=== PATIENT | male | born 1965 | race Caucasian/White ===

== ENCOUNTER 2019-04-07 12:54 | Outpatient (CLI) | payer OTHER, SELFPAY ==
--- NOTE | 2019-04-07 13:08 | MR_ITS ---
WS: [id number] MRI RIGHT SHOULDER NONCONTRAST TECHNIQUE: Sagittal T2, coronal T1, T2 and proton density imaging. Axial gradient PDE imaging. CLINICAL INFORMATION: RIGHT SHOULDER PAIN COMPARISON: None. FINDINGS: Moderate degenerative arthritis AC joint with edema. Mild downsloping of the acromion. Subacromial sp urring. Tendinopathy in the supraspinatus. Tiny insertional tear at the supraspinatus distally. Suni l infraspinatus. Normal teres minor. Subscapularis appears normal. No full-thickness rotator cuff tea rs. Normal biceps tendon in the bicipital groove. Degenerative fraying of the glenoid labrum. Biceps labr al anchor appears normal. Chronic thinning of the intra-articular portion of the biceps tendon. MR/MR shoulder RT wo con* [id number] IMPRESSION: 1. Moderate degenerative arthritis AC joint with edema and mild downsloping of the acromion. 2. Tendinopathy in the supraspinatus with a tiny insertional tear distally. 3. Rotator cuff is otherwise intact 4. Normal biceps tendon in the bicipital groove. 5. Chronic thinning and atrophy involving the intra-articular portion of the b iceps tendon. 6. Degenerative fraying of the glenoid labrum.
== END 2019-04-07 12:55 | disposition home or self-care (01) ==
LOC: RADSHAW 12:59
PROVIDERS: Visit Provider Family Medicine
DX: M19.011 Primary osteoarthritis, right shoulder (principal); M25.511 Pain in right shoulder
CPT/HCPCS: 73221

== ENCOUNTER 2020-12-07 14:16 | Outpatient (CLI) | payer OTHER, SELFPAY ==
--- NOTE | 2020-12-07 14:29 | MR_ITS ---
WS: [id number] MRI CERVICAL SPINE NONCONTRAST TECHNIQUE: Sagittal T1, T2 and STIR imaging. Axial T2, gradient, and fiesta imaging. CLINICAL INFORMATION: CERVICAL RADICULOPATHY COMPARISON: None. FINDINGS: Straightening of the normal cervical lordosis. Mild spondylitic changes. Mild disc bulging worse at C 3-4, C5-C6, and C6-C7 with endplate degenerative changes. Small shallow protrusions in the upper thor acic spine T2-3 and T3-4. Cord signal is normal. C2-C3: Mild osteophytic ridging. Mild left and no significant right foraminal narrowing. Spinal canal is patent. Mild facet arthropathy. Small right facet effusion with periarticular edema and facet art hropathy. C3-C4: Mild disc osteophyte complex with endplate ridging. Mild central canal stenosis. Moderate left and mild right bony foraminal narrowing. Mild facet arthropathy. C4-C5: Mild disc osteophyte complex with endplate ridging. Moderate left and mild right bony foramina l narrowing. Mild facet arthropathy. Mild central canal stenosis. C5-C6: Mild disc osteophyte complex with endplate degenerative changes. Moderate bilateral bony chey inal narrowing. Mild central canal stenosis. Mild facet arthropathy. Left pericentral disc osteophyte protrusion slightly contacts the left ventral cervical cord. C6-C7: Disc osteophyte complex with small lobulated shallow central protrusion. Mild central canal st enosis. Mild left greater than right bony foraminal narrowing. Mild facet arthropathy. C7-T1: Mild left and no significant right foraminal narrowing. Spinal canal is patent Visualized brain stem structures: Normal. Prevertebral soft tissues: Normal. MR/MR lumbar spine wo con* [id number] IMPRESSION: 1. Straightening of the normal cervical lordosis. 2. Mild central canal stenosis C3-4, C5-6, and C6-7. Small shallow disc osteop hyte complexes at C5-C6 and C6-C7 with slight contact of the cervical cord. 3. Moderate bony foraminal narrowing worse at left C3-4, left C4-5, and bilate ral C5-6, 4. Edema within the right articulating C2-3 facets with a small effusion. Delicia articular edema. Findings compatible with degenerative or inflammatory synoviti s.
== END 2020-12-07 14:17 | disposition home or self-care (01) ==
PROVIDERS: Visit Provider Family Medicine
DX: M54.12 Radiculopathy, cervical region (principal); M48.02 Spinal stenosis, cervical region; M25.78 Osteophyte, vertebrae
CPT/HCPCS: 72148

== ENCOUNTER → 2021-03-02 10:27 | Outpatient (BNVA) | payer OTHER, SELFPAY | PROVIDERS: PCP Family Medicine; Referring Provider Family Medicine; Visit Provider Anesthesiology Pain Medicine | DX: G89.29 Other chronic pain (principal); M54.12 Radiculopathy, cervical region; M47.812 Spondylosis without myelopathy or radiculopathy, cervical region; M48.02 Spinal stenosis, cervical region; M79.601 Pain in right arm; M79.602 Pain in left arm | CPT/HCPCS: 99205 ==

== ENCOUNTER 2023-07-29 20:00 | Outpatient (CLI) | payer OTHER, SELFPAY | END 2023-07-29 20:01 | disposition home or self-care (01) | LOC: SLEEP 07-30 06:16 | PROVIDERS: PCP Family Medicine; Visit Provider Family Medicine | DX: G47.33 Obstructive sleep apnea (adult) (pediatric) (principal) | CPT/HCPCS: 95811 ==

== ENCOUNTER 2024-03-01 10:49 | Observation (INO) | payer OTHER, SELFPAY ==
[2024-03-01] VITALS (8 sets, daily range): BP systolic 111–163; BP diastolic 74–99; PULSE 70–86; RESP 17–19; TEMP 36.4–37; O2SAT 94–99; BMI 25.7; BMI 26.0
--- NOTE | 2024-03-01 10:50 | XRR_ITS ---
PROCEDURE INFORMATION: Exam: XR Chest Exam date and time: 03/01/2024 11:02 AM Age: 58 years old Clinical indication: Pain; Patient HX: PT complains of chest pressure that started around midnight 2 nights ago. PT states he thought it was acid reflux and tried tums with no relief. PT states yesterday he started to become dizzy and had some shortness of breath. PT states his chest feels tight and goes down his left arm. ; Additional info: Cp TECHNIQUE: Imaging protocol: Radiologic exam of the chest. Views: 1 view. COMPARISON: MR shoulder RT wo con* [id number] 04/07/2019 1:49 PM FINDINGS: Lungs: Unremarkable. No consolidation. Pleural spaces: Unremarkable. No pleural effusion. No pneumothorax. Heart/Mediastinum: Unremarkable. No cardiomegaly. Bones/joints: Unremarkable. XR/XR chest 1V portable [id number] IMPRESSION: No acute findings.
--- NOTE | 2024-03-01 11:02 | ED_ITS ---
HPI - Chest Pain 2 General: Chief Complaint: Chest Pain Stated Complaint: Chest Pressure, night sweats, lightheaded, SOB Time Seen by Provider: 03/01/24 10:58 Source: patient Mode of arrival: ambulatory Limitations: no limitations History of Present Illness: 58-year-old male states that he has been having chest pains over the last 2 days states been intermittent pressure type pain in his chest states pain is currently 2 out of 10 said he had some night sweats and the pains radiate to his left shoulder. No history of coronary artery disease does have a history of hypertension diabetes. Associated symptoms: Deny abdominal pain, dyspnea, fever(s), nausea or vomiting Related Data Home Medications Medication Instructions Recorded Confirmed lisinopril 40 mg tablet 40 mg PO DAILY 04/27/19 03/01/24 metformin 1,000 mg tablet 1,000 mg PO BID 03/02/21 03/01/24 atorvastatin 40 mg tablet 40 mg PO QPM 03/01/24 03/01/24 empagliflozin 25 mg tablet 25 mg PO DAILY 03/01/24 03/01/24 (Jardiance) hydrochlorothiazide 25 mg tablet 25 mg PO DAILY blood pressure 03/01/24 03/01/24 Allergies Allergy/AdvReac Type Severity Reaction Status Date / Time No Known Allergies Allergy Verified 03/02/21 11:02 Review of Systems 2 Const: Denies: fever(s), chills, body aches or change in appetite ENMT: Denies: throat pain or dental pain Card: Reports: chest pain Resp: Denies: dyspnea GI: Denies: abdominal pain, nausea, vomiting or diarrhea Musc: Denies: neck pain or back pain Skin/Breast: Denies: rash Neuro: Denies: headache(s) PFSH ED 2 PFSH: Family History (Updated 03/02/21 @ 11:01 by Nikki Stoddard RN) Father Heart disease Social History Smoking and tobacco/nicotine status: former use of tobacco/nicotine Alcohol intake: never Substance/Drug Use: never Caregiver/support person: Yes Lives independently: Yes Physical Exam 2 Const: COMMON NORMALS: no acute distress, patient oriented x3 and healthy appearing HENMT: COMMON NORMALS: normocephalic and atraumatic HEAD & SCALP: n ormocephalic and atraumatic Eye: COMMON NORMALS: conjunctivae normal CONJUNCTIVA: Yes conjunctivae normal Neck/C-Spine: COMMON NORMALS: full ROM and supple Chest: COMMONS NORMALS: normal inspection of the chest Resp: COMMON NORMALS: normal respiratory effort Cardio: COMMON NORMALS: regular rate, regular rhythm and No murmurs present (Cardio) RATE: regular rate RHYTHM: regular rhythm GI: COMMON NORMALS: Normal to inspection, nondistended, normoactive bowel sounds present, Soft to palpation, non-tender and no masses PALPATION: Yes Soft to palpation Extremity: COMMON NORMALS: normal to inspection and full ROM Neuro: COMMON NORMALS: patient oriented x3, moves all extremities and no focal motor deficits Psych: COMMON NORMALS: mental status grossly normal, Normal thought process present and cooperative THOUGHT PROCESS: Normal thought process present Skin: COMMON NORMALS: no rashes or lesions noted and no wounds GENERAL SKIN EXAM: no rashes or lesions noted Course 2 Vital Signs: Vital signs: Vital Signs Temperature 98.6 F 03/01/24 10:59 Pulse Rate 75 03/01/24 11:09 Respiratory Rate 17 03/01/24 10:59 Blood Pressure 163/99 03/01/24 11:09 Pulse Oximetry 94 03/01/24 11:09 Oxygen Delivery Me thod Room Air 03/01/24 11:09 MDM - Chest Pain Medical Decision Making Patient presents here with chest pain EKG and troponin is negative he does have multiple risk factors spoke to the hospitalist will admit for observation for chest pain rule out. Medical Records I reviewed the patient's medical records. Lab Data I reviewed the patient's lab results. 03/01/24 11:16 03/01/24 11:16 Radiology Impressions Chest X-Ray 03/01/24 10:50 IMPRESSION: No acute findings. Laboratory Results WBC 7.18 10^3/uL (3.29-11.43) 03/01/24 11:16 RBC 5.26 10^6/uL (3.85-5.65) 03/01/24 11:16 Hgb 17.30 g/dL (11.27-16.99) H 03/01/24 11:16 Hct 48.3 % (37-53) 03/01/24 11:16 MCV 91.8 fl (82-101) 03/01/24 11:16 MCH 32.9 pg (27-33) 03/01/24 11:16 MCHC 35.8 g/dL (30-55) 03/01/24 11:16 RDW 11.1 % (12.1-15.1) L 03/01/24 11:16 Plt Count 193 10^3/cmm (157-399) 03/01/24 11:16 MPV 9.9 fL (7.4-10.4) 03/01/24 11:16 Neut % (Auto) 64.8 % 03/01/24 11:16 Lymph % (Auto) 26.0 % 03/01/24 11:16 [place] % (Auto) 7.0 % 03/01/24 11:16 Eos % (Auto) 1.5 % 03/01/24 11:16 Baso % (Auto) 0.4 % 03/01/24 11:16 Neut # (Auto) 4.65 10^3/uL (1.8-7.7) 03/01/24 11:16 Lymph # (Auto) 1.9 10^3/uL (0.8-4.8) 03/01/24 11:16 [place] # (Auto) 0.5 10^3/uL (0.2-0.9) 03/01/24 11:16 Eos # (Auto) 0.1 10^3/uL (0.0-0.8) 03/01/24 11:16 Baso # (Auto) 0.0 10^3/uL (0.0-0.1) 03/01/24 11:16 Nucleated RBC % (auto) 0 % 03/01/24 11:16 Nucleated RBCs # 0.0 /100WBC 03/01/24 11:16 PT 12.90 SECONDS (12.1-14.9) 03/01/24 11:16 INR 0.94 (0.8-1.2) 03/01/24 11:16 Sodium 131 mmol/L (136-145) L 03/01/24 11:16 Potassium 4.3 mmol/L (3.5-5.1) 03/01/24 11:16 Chloride 92 mmol/L (98-107) L 03/01/24 11:16 Carbon Dioxide 21 mmol/L (22-29) L 03/01/24 11:16 Anion Gap 22.3 (5-19) H 03/01/24 11:16 BUN 16 mg/dL (6-20) 03/01/24 11:16 Creatinine 0.9 mg/dL (0.7-1.2) 03/01/24 11:16 GFR Calculation 86.4 mL/min (90-130) L 03/01/24 11:16 Glucose 155 mg/dL (65-115) H 03/01/24 11:16 Calculated Osmolality 276 mOsm/kg (285-295) L 03/01/24 11:16 Calcium 10.9 mg/dL (8.5-10.5) H 03/01/24 11:16 Total Bilirubin 1.0 mg/dL (0.15-1.2) 03/01/24 11:16 AST 33 U/L (0-40) 03/01/24 11:16 ALT 25 U/L (0-41) 03/01/24 11:16 Alkaline Phosphatase 87 U/L (40-130) 03/01/24 11:16 Troponin T Baseline 10 ng/L (0-15) 03/01/24 11:16 Total Protein 7.5 g/dL (6.6-8.7) 03/01/24 11:16 Albumin 4.9 g/dL (3.5-5.2) 03/01/24 11:16 Globulin 2.6 g/dL (1.3-4.6) 03/01/24 11:16 Lipase 34 U/L (13-60) 03/01/24 11:16 All radiology interpretation(s) finalized by discharge EKG Data EKG 1: I personally reviewed and interpreted this EKG as follows: EKG interpretation date: 03/01/24 EKG interpretation time: 11:02 Interpretation: nsr hr [address] elevation qrs 87 qtc 384 Discharge Plan Discharge Patient Disposition: Placed in Observation Clinical Impression: Chest pain Coding Level of Care Code ED Matchbook Maker for Kathe Gibbons
--- NOTE | 2024-03-01 11:02 | ECG_ITS ---
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
[2024-03-01] MEDS: aspirin 81 mg Chew Tablet 324 MG PO (11:26)
[2024-03-01] MEDS: nitroglycerin 0.4 mg sublingual Tablet SUBLINGUAL (11:27)
[2024-03-01 11:29] LABS: Basophils % 0.4 %; Eosinophils # 0.1 10^3/uL (0.0-0.8); Eosinophils % 1.5 %; Hematocrit 48.3 % (37-53); Lymphocytes # 1.9 10^3/uL (0.8-4.8); Mean Corpuscular HGB Conc 35.8 g/dL (30-55); Mean Corpuscular Hemoglobin 32.9 pg (27-33); Mean Corpuscular Volume 91.8 fl (82-101); Mean Platelet Volume 9.9 fL (7.4-10.4); Monocytes # 0.5 10^3/uL (0.2-0.9); Neutrophils # 4.65 10^3/uL (1.8-7.7); Neutrophils % 64.8 %; Nucleated Red Blood Cells % 0 %; Platelet Count 193 10^3/cmm (157-399); Red Blood Count 5.26 10^6/uL (3.85-5.65); Red Cell Distribution Width 11.1 % (12.1-15.1); White Blood Count 7.18 10^3/uL (3.29-11.43)
[2024-03-01 11:42] LABS: INR 0.94 (0.8-1.2)
[2024-03-01 11:45] LABS: Alanine Aminotransferase 25 U/L (0-41); Albumin Level 4.9 g/dL (3.5-5.2); Alkaline Phosphatase 87 U/L (40-130); Blood Urea Nitrogen 16 mg/dL (6-20); Calcium 10.9 mg/dL (8.5-10.5); Carbon Dioxide 21 mmol/L (22-29); Chloride 92 mmol/L (98-107); Creatinine Clr Calc Pharmacy 98.4325; Globulin 2.6 g/dL (1.3-4.6); Glomerular Filtration Rate 86.4 mL/min (90-130); Glucose 155 mg/dL (65-115); Lipase 34 U/L (13-60); Osmolality Calculated 276 mOsm/kg (285-295); Sodium 131 mmol/L (136-145); Total Protein 7.5 g/dL (6.6-8.7)
[2024-03-01 11:46] LABS: Anion Gap 22.3 (5-19); Aspartate Amino Transferase 33 U/L (0-40); Potassium 4.3 mmol/L (3.5-5.1); Troponin(5th) Baseline 10 ng/L (0-15)
--- NOTE | 2024-03-01 12:00 | PC.PHAR ---
patient is va, called after hours # to get med list
--- NOTE | 2024-03-01 12:50 | ECG_ITS ---
[email or web address] 2024-[facility]01 Pat Name: Pipo Finnegan Department: Room: Gender: Male Pick Up: : 1965 Requested By: Sue Jasso Order Number: [id number] Reading MD: DENZEL LOTT Measurements Intervals [place] Rate: 71 P: 42 DC: 154 QRS: 86 QRSD: 97 T: 14 QT: 374 QTc: 406 Interpretive Statements SINUS RHYTHM Compared to ECG 03/01/2024 11:02:10 No significant changes Electronically Signed On 03-02-2024 16:16:35 ANGLEDOZER OPERATOR by DENZEL LOTT [id number]
[2024-03-01 13:12] LABS: D Dimer 0.29 ug/mLFEU (0-0.59)
--- NOTE | 2024-03-01 13:29 | P.HP_ITS ---
Providers/Chief Complaint 2 Primary Care Provider: Kenia Samayoa MD Chief Complaint: Chest Pressure, night sweats, lightheaded, SOB History of Present Illness Pleasant 58-year-old gentleman with history of longstanding HTN since teenage years, DM2, HLD, started having some chest pressure around midnight night before last, initially figured it was maybe some indigestion type symptoms with reflux, was having it somewhat through the day, but also felt mildly lightheaded, overnight woke up with mild night sweats. Chest pressure has been radiating to the left shoulder, left arm and present with exertion and at rest. Received nitroglycerin, did develop a headache, still having mild pressure. Review of Systems 2 Const: Denies: fever(s), chills, body aches or malaise ENMT: Denies: throat pain Card: Reports: lightheadedness and other (Chest pressure as above); Denies: edema, pre-syncope or dyspnea on exertion Resp: Denies: dyspnea, productive cough, change in phlegm color or hemoptysis GI: Denies: abdominal pain, nausea, vomiting, diarrhea, constipation, hematochezia or melena : Denies: flank pain, difficulty urinating, urinary frequency or hematuria Musc: Denies: back pain, joint swelling or joint redness Skin/Breast: Denies: rash Neuro: Denies: headache(s) or confusion Medications/Allergies Home Medications Medication Instructions Recorded Confirmed Last Taken Type lisinopril 40 mg tablet 40 mg PO DAILY 04/27/19 03/01/24 Unknown History metformin 1,000 mg tablet 1,000 mg PO BID 03/02/21 03/01/24 Unknown History atorvastatin 40 mg tablet 40 mg PO QPM 03/01/24 03/01/24 Unknown History empagliflozin 25 mg tablet 25 mg PO DAILY 03/01/24 03/01/24 Unknown History (Jardiance) hydrochlorothiazide 25 mg tablet 25 mg PO DAILY blood pressure 03/01/24 03/01/24 Unknown History Allergies Allergy/AdvReac Type Severity Reaction Status Date / Time No Known Allergies Allergy Verified 03/02/21 11:02 PFSH Acute 2 PFSH: Medical History HLD (hyperlipidemia) HTN (hypertension) DM type 2 (diabetes mellitus, type 2) Family History Father Heart disease Social History Smoking and tobacco/nicotine status: former use of tobacco/nicotine Alcohol intake: never Substance/Drug Use: never Caregiver/support person: Yes Lives independently: Yes Vitals/I&O/Wt Last Vital Signs Temp 98.6 F 03/01/24 10:59 Pulse 75 03/01/24 11:09 Resp 17 03/01/24 10:59 BP 163/99 03/01/24 11:09 Pulse Ox 94 03/01/24 11:09 O2 Del Method Room Air 03/01/24 11:09 Weight last 48 hrs Weight 83.915 kg Physical Exam 2 Narrative: Accompanied by his Const: COMMON NORMALS: patient oriented x3 and alert GENERAL APPEARANCE: c ooperative ORIENTATION/CONSCIOUSNESS: Yes awake HENMT: COMMON NORMALS: oropharynx normal Neck/C-Spine: COMMON NORMALS: no JVD Resp: COMMON NORMALS: normal respiratory effort and clear to auscultation bilaterally AUSCULTATION: clear to auscultation bilaterally Cardio: COMMON NORMALS: no JVD, regular rhythm, S1 normal heart sound present, S2 normal heart sound present and No murmurs present (Cardio) RHYTHM: regular rhythm HEART SOUNDS: S1 normal heart sound present and S2 normal heart sound present GI: COMMON NORMALS: Normal to inspection, nondistended, normoactive bowel sounds present, Soft to palpation and non-tender PALPATION: Yes Soft to palpation Extremity: COMMON NORMALS: no joint enlargement and no pedal edema Neuro: COMMON NORMALS: patient oriented x3 and moves all extremities S ENSORIUM/ORIENTATION: Yes alert Skin: COMMON NORMALS: no rashes or lesions noted GENERAL SKIN EXAM: no rashes or lesions noted Data 03/01/24 11:16 03/01/24 11:16 A&P Assessment and plan (1) Chest pressure: Chest pressure across his chest rating to left shoulder, left arm, started sometime after midnight night before last, initially thought it was some digestive issues, reflux as he has been eating some out of the ordinary for him foods recently, however, when pressure/discomfort started radiating to his left shoulder, left mid arm, he became concerned. He also had a mild night sweat. Reviewed vitals, CBC, INR, CMP, lipase, troponin, EKG, chest x-ray, ER provider note, discussed with ER provider. He does have cardiovascular risk factors including diabetes, HTN, HLD. Assess possible unstable angina. Complete troponin EKG series to assess for active ischemia, at current time EKG on my interpretation is in normal sinus rhythm without sign of acute IA. Initial troponins are normal. He was feeling lightheaded, he is on antihypertensives, blood pressure with some fluctuation in ER. Will obtain orthostatics. Additionally with some night sweats, will check PCR COVID, influenza, RSV. He is on statin at home, will check CK. Hold statin for now. Nitroglycerin as needed. Monitor for risk of hypotension with fluctuation in blood pressure. Additionally with noted mild hyponatremia, hypercalcemia, will hold HCTZ. Additionally with symptoms feeling possibly like indigestion, reflux, will give Protonix. Requested D-dimer, reviewed, unremarkable, low probability of PE. Discussed with him obtaining treadmill mibi stress test in the morning. Continue aspirin. (2) Hypercalcemia: Mild hypercalcemia, 10.9, with mild hyponatremia, on HCTZ. Hold medicine. Recheck. Follow-up chemistry. Check magnesium. (3) Hyponatremia: Hold HCTZ. Recheck sodium level. Regular diet. Plan Anion gap metabolic acidosis, DM2: On metformin at home. On Jardiance Which can cause localized ketoacidosis. Noted anion gap metabolic acidosis, bicarb is down to 21. Hold metformin. Check lactic acid. Check UA, serum ketone. VBG Attestations 2 Medical Necessity Statement*: Place in observation for additional assessment and management of chest pressure in a gentleman with cardiovascular risk factors, hypercalcemia, hyponatremia as well as anion gap metabolic acidosis, assess for possible euglycemic ketoacidosis. and High MDM includes number and complexity of problems actively addressed during encounter and amount and/or complexity of data reviewed/ordered [ previous or external records, resulted lab(s)/test(s), ordered lab(s)/test(s), independent test interpretation and other healthcare professional discussion] as documented Diagnoses Chest pressure R07.89 Hypercalcemia E83.52 Hyponatremia E87.1
[2024-03-01 13:39] LABS: Troponin 5 2HR 9.04 ng/L (0-15)
[2024-03-01 13:40] LABS: Troponin 5 2HR Delta -0.96 ABS# (0-10)
[2024-03-01 14:05] LABS: Covid PCR NEGATIVE (Negative); Influenza A NEGATIVE (Negative); Influenza B NEGATIVE (Negative); Respiratory Syncytial Virus Ce NEGATIVE (Negative)
[2024-03-01] MEDS: pantoprazole DR 40 mg Tablet PO (14:47)
[2024-03-01 14:49] LABS: Creatine Phosphokinase 75 U/L (39-308)
[2024-03-01 14:58] LABS: Ketone (Acetest) Serum Negative (Negative)
[2024-03-01] MEDS: enoxaparin 40 mg/0.4 mL Syringe SUBCUT (14:58)
[2024-03-01 16:46] LABS: Glucose Point of Care 111 mg/dL (70-110)
--- NOTE | 2024-03-01 16:50 | ECG_ITS ---
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
[2024-03-01 16:52] LABS: Add Urine Microscopic? NO
[2024-03-01 16:57] LABS: Bilirubin Urine Negative (Negative); Blood Urine Negative (Negative); Glucose Urine UA 3+ (Normal); Ketones Urine 2+ (Negative); Leukocyte Esterase Urine Negative (Negative); Nitrate Urine Negative (Negative); Protein Urine Negative (Negative); Specific Gravity, Urine 1.018 (1.005-1.030); Urine Appearance Clear (CLEAR); Urine Color Yellow (Yellow); Urobilinogen Urine 0.2 mg/dL (Negative)
[2024-03-01 16:59] LABS: Base Excess VBG 0.2 mmol/L (-3.0-3.0); Blood Gas Operator Identificat BROMA; Blood Gas Sample Site Not specified; Blood Gas Sample Type Venous; HCO3 VBG 26.2 mmol/L (24-28); PCO2 VBG 45.7 mmHg (41-51); PO2 VBG 20.5 mmHg (25-40); Venous Blood Gas Hematocrit 55.8 % (42-52); pH VBG 7.37 (7.32-7.42)
[2024-03-01 17:01] LABS: Add Urine Culture? No; Charge for UA Resulting for Rev
[2024-03-01 17:21] LABS: Troponin 5 6HR 10.04 ng/L (0-15); Troponin 5 6HR Delta 0.04 ng/L (0-12)
[2024-03-01] MEDS: atorvastatin 40 mg Tablet PO (17:21)
[2024-03-01 17:22] LABS: Lactate (Lactic Acid level) 1.8 mmol/L (0.5-2.2)
[2024-03-01 20:58] LABS: Glucose Point of Care 122 mg/dL (70-110)
[2024-03-02] VITALS (11 sets, daily range): BP systolic 95–119; BP diastolic 62–82; PULSE 70–88; RESP 15–18; TEMP 36.6–36.9; O2SAT 92–97
[2024-03-02 05:56] LABS: Basophils % 0.6 %; Eosinophils # 0.2 10^3/uL (0.0-0.8); Eosinophils % 2.9 %; Hematocrit 49.7 % (37-53); Lymphocytes # 2.5 10^3/uL (0.8-4.8); Lymphocytes % 35.6 %; Mean Corpuscular HGB Conc 35.4 g/dL (30-55); Mean Corpuscular Hemoglobin 33.3 pg (27-33); Mean Platelet Volume 9.8 fL (7.4-10.4); Monocytes # 0.6 10^3/uL (0.2-0.9); Monocytes % 7.9 %; Neutrophils % 52.9 %; Nucleated Red Blood Cells % 0 %; Platelet Count 198 10^3/cmm (157-399); Red Blood Count 5.29 10^6/uL (3.85-5.65); Red Cell Distribution Width 11.3 % (12.1-15.1); White Blood Count 6.99 10^3/uL (3.29-11.43)
[2024-03-02 06:32] LABS: Glucose Point of Care 141 mg/dL (70-110)
[2024-03-02 06:58] LABS: Alanine Aminotransferase 27 U/L (0-41); Albumin Level 4.5 g/dL (3.5-5.2); Alkaline Phosphatase 77 U/L (40-130); Aspartate Amino Transferase 31 U/L (0-40); Blood Urea Nitrogen 17 mg/dL (6-20); Calcium 9.8 mg/dL (8.5-10.5); Carbon Dioxide 19 mmol/L (22-29); Chloride 92 mmol/L (98-107); Creatinine Clr Calc Pharmacy 88.1807; Globulin 2.8 g/dL (1.3-4.6); Glomerular Filtration Rate 76.5 mL/min (90-130); Glucose 141 mg/dL (65-115); Magnesium 1.7 mg/dL (1.7-2.3); Osmolality Calculated 278 mOsm/kg (285-295); Sodium 132 mmol/L (136-145); Total Protein 7.3 g/dL (6.6-8.7)
[2024-03-02] MEDS: lisinopril 20 mg Tablet 40 MG PO (09:01)
[2024-03-02] MEDS: pantoprazole DR 40 mg Tablet PO (09:01)
[2024-03-02] MEDS: insulin lispro 100 unit/1 mL SUBCUT ×3 (09:01→21:21)
[2024-03-02] MEDS: aspirin 325 mg Tablet PO (09:02)
--- NOTE | 2024-03-02 09:53 | PC.CHAP ---
Pastoral Care Encounter/Spiritual Assessment Type of Contact [] Declined fusion analyst visit [] Patient/Family/Request visit [] Outpatient visit [] Follow-up visit [] Physician referral [] Code/Alert [x] Routine visit [] Staff referral [] Actively dying [] Patient sleeping [x] Family support [] [] Out of room [] Palliative care [] [] Receiving care in room [] Pre-surgical visit [] Trauma [] Long length of stay [] ICU visit [] Other: Relational/Emotional Strength [] Patient feels connected with others/family/visitors/staff [] Distress [] Loneliness/isolation [] Abandonment Spirituality of Patient [x] Person of Yvonne [] Attends Baptist of their Yvonne [x Believes in Prayer [] Reads Bible or Judaism materials [] There are Spiritual issues to be addressed Colorer Interventions [x] Prayer [x] Active listening [] Non-anxious presence [] Spiritual/emotional support [] Crisis/trauma care [] Spiritual counseling [] Bereavement support [] Provided bereavement packet [x] Provided Bible/devotional materials [] Provided toy/stuffed animal, coloring book to patient or family member [] Provided Communion [] Anointing/[place] [] Salvation [x] Completed spiritual assessment [] Other: Impact on Illness or Injury [] Angry [] Fearful [] Anxious [] Often cries [] Exhaustion [] Unable to work [] Unable to attend amish [] Unable to walk/stand [] Unable to read [] Unable to drive [] Unable to eat/drink [] Unable to sleep [] Unable to be with family [] Patient intubated [] Other: Summary Time spent with patient 15 min
[2024-03-02 12:07] LABS: Glucose Point of Care 108 mg/dL (70-110)
--- NOTE | 2024-03-02 12:22 | USCV_ITS ---
Pipo Finnegan Age: 58 Gender: M : 1965 Exam Date: 03/02/2024 19:08 Ordering Phys: Stew Ordaz MD Technologist: KRISTOPHER Exam Location: [facility] [place] Indication: unstable angina, hx HTN, DM BP: 102 / 67 HR: 72 Rhythm: Sinus Technical Quality: Adequate MEASUREMENTS (Male / Female) Normal Values 2D ECHO LV Diastolic Diameter PLAX 3.7 cm 4.2 - 5.9 / 3.9 - 5.3 cm IVS Diastolic Thickness 1.5 cm 0.6 - 1.0 / 0.6 - 0.9 cm IVS Systolic Thickness 1.9 cm LVPW Diastolic Thickness 1.3 cm 0.6 - 1.0 / 0.6 - 0.9 cm LVPW Systolic Thickness 1.9 cm LVOT Diameter 1.6 cm LV Ejection Fraction 2D Teich 66.0 % LV Ejection Fraction MOD 4C 60.6 % LV Ejection Fraction MOD 2C 52.1 % LV Ejection Fraction 2C AL 54.1 % LA Diameter 3.1 cm Aorta at Sinotubular Diameter 2.9 cm IVC Diameter 1.3 cm M-MODE LA Ao Ratio MM 1.2 AV Cusp Separation MM 2.1 cm DOPPLER AV Peak Velocity 130.0 cm/s LVOT Peak Velocity 133.0 cm/s AV Area Cont Eq vti 2.7 cm squared AV Area Cont Eq pk 2.1 cm squared MV Peak Velocity 85.0 cm/s MV Area PHT 2.5 cm squared Mitral E to A Ratio 0.8 TV Peak E Velocity 41.0 cm/s PV Peak Velocity 104.0 cm/s FINDINGS Left Ventricle Normal left ventricular size and systolic function, EF 60%. No regional wall motion abnormalities. Grade I/IV diastolic dysfunction (abnormal relaxation filling pattern), normal to mildly elevated filling pressures. Right Ventricle The right ventricle is normal in size and function. Right Atrium The right atrium is normal in size. Left Atrium The left atrium is normal in size. Mitral Valve No gross abnormalities noted Aortic Valve Thickened aortic valve. Tricuspid Valve No gross abnormalities noted Pulmonic Valve No gross abnormalities noted Pericardium Normal pericardium without effusion. Aorta Normal ascending aorta dimension. IVC Normal inferior vena cava. CONCLUSIONS Normal left ventricular size and systolic function, EF 60%. No regional wall motion abnormalities. Grade I/IV diastolic dysfunction (abnormal relaxation filling pattern), normal to mildly elevated filling pressures. Thickened aortic valve. Normal cardiac chamber sizes. No intracardiac masses There is no pericardial effusion. No similar previous studies are available for comparison Dr Sondra Steel MD FAC (Electronically Signed) Final Date: 03 March 2024 08:01 S
--- NOTE | 2024-03-02 13:04 | ECG_ITS ---
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 Interpretive Statements LEXISCAN SESTAMIBI STRESS TEST Procedure: At the baseline, the blood pressure was 111/65 mmHg with a heart rate of 87 bpm. The electrocardiogram showed normal sinus rhythm, normal axis with non specific ST T wave changes. The Lexiscan was infused over a period of 20 seconds. A total of 0.4 mg of Lexiscan was infused. The stress phase was continued for a total of 5 minutes. Heart rate was at the end of stress phase was 107 bpm and a blood pressure of 140/68 mmHg. The EKG at the peak infusion revealed normal sinus rhythm with no significant ST-T wave changes. Sestamibi was injected 20 seconds after the Lexiscan infusion. Blood pressure at the end of recovery phase was 108/68 mmHg with a heart rate of 104 bpm. Conclusion: 1. Normal EKG response to Lexiscan infusion 2. No Lexiscan induced chest pain or cardiac arrhythmia. 3. Normal blood pressure and heart rate response. 4. Sestamibi/sestamibi perfusion scan pending; see separate report. Electronically Signed On 03-09-2024 08:29:38 SUPERVISOR PUBLICATIONS PRODUCTION by Steven Dougherty M.D. [id number]
[2024-03-02 13:17] LABS: Estmated Average Glucose 166; Hemoglobin A1C 7.4 % (4.0-6.0)
[2024-03-02 13:33] LABS: Chol HDL Ratio 3.42 mg/dL (1.0-5.00); Cholesterol 130 mg/dL (0-200); HDL Cholesterol 38 mg/dL (60-100); Iron 100 ug/dL (59-158); LDL Cholesterol Calculated 32 mg/dL (50-129); Percent Saturation 36.1 % (20-50); Thyroid Stimulating Hormone 1.79 uIU/mL (0.27-4.20); Total Iron Binding Capacity 277 mcg/dl; Triglycerides 301 mg/dL (0-150); Unsaturated Iron Binding 177 ug/dL (112-347); VLDL Cholestrol Calculation 60 mg/dL (0-30); Vitamin B12 888 pg/mL (232-1245)
[2024-03-02] MEDS: sodium chloride 0.9% 1,000 ML 75 ML IV (13:33)
[2024-03-02] MEDS: enoxaparin 40 mg/0.4 mL Syringe SUBCUT ×2 (15:39→17:38)
--- NOTE | 2024-03-02 16:09 | P.PN_ITS ---
Subjective 2 Subjective: Hospital course, labs appreciated. Seen with at bedside. Patient states she is feeling better but continues to have on and off chest pressures. Denies any nausea, vomiting, diaphoresis, palpitations. Awaiting stress test to be done today. Vitals/I&O/Wt Last Vital Signs Temp 98.4 F 03/02/24 15:10 Pulse 79 03/02/24 15:10 Resp 16 03/02/24 15:10 BP 99/66 03/02/24 12:00 Pulse Ox 94 03/02/24 07:40 O2 Del Method Room Air 03/02/24 15:10 03/02/24 03/02/24 03/02/24 06:59 14:59 22:59 Intake Total 0 / 1020 Balance 0 / 1020 Weight last 48 hrs Weight 83.007 kg Weight 84.776 kg Weight 83.915 kg Physical Exam 2 Narrative: Accompanied by his Const: COMMON NORMALS: patient oriented x3 and alert GENERAL APPEARANCE: c ooperative ORIENTATION/CONSCIOUSNESS: Yes awake HENMT: COMMON NORMALS: oropharynx normal Neck/C-Spine: COMMON NORMALS: no JVD Resp: COMMON NORMALS: normal respiratory effort and clear to auscultation bilaterally AUSCULTATION: clear to auscultation bilaterally Cardio: COMMON NORMALS: no JVD, regular rhythm, S1 normal heart sound present, S2 normal heart sound present and No murmurs present (Cardio) RHYTHM: regular rhythm HEART SOUNDS: S1 normal heart sound present and S2 normal heart sound present GI: COMMON NORMALS: Normal to inspection, nondistended, normoactive bowel sounds present, Soft to palpation and non-tender PALPATION: Yes Soft to palpation Extremity: COMMON NORMALS: no joint enlargement and no pedal edema Neuro: COMMON NORMALS: patient oriented x3 and moves all extremities S ENSORIUM/ORIENTATION: Yes alert Skin: COMMON NORMALS: no rashes or lesions noted GENERAL SKIN EXAM: no rashes or lesions noted Data 03/02/24 05:40 03/02/24 05:40 A&P Assessment and plan (1) Chest pressure: Chest pressure across his chest rating to left shoulder, left arm, started sometime after midnight night before last, initially thought it was some digestive issues, reflux as he has been eating some out of the ordinary for him foods recently, however, when pressure/discomfort started radiating to his left shoulder, left mid arm, he became concerned. He also had a mild night sweat. Reviewed vitals, CBC, INR, CMP, lipase, troponin, EKG, chest x-ray, ER provider note, discussed with ER provider. He does have cardiovascular risk factors including diabetes, HTN, HLD. Assess possible unstable angina. Complete troponin EKG series to assess for active ischemia, at current time EKG on my interpretation is in normal sinus rhythm without sign of acute [place]. Initial troponins are normal. He was feeling lightheaded, he is on antihypertensives, blood pressure with some fluctuation in ER. Will obtain orthostatics. Additionally with some night sweats, will check PCR COVID, influenza, RSV. He is on statin at home, will check CK. Hold statin for now. Nitroglycerin as needed. Monitor for risk of hypotension with fluctuation in blood pressure. Additionally with noted mild hyponatremia, hypercalcemia, will hold HCTZ. Additionally with symptoms feeling possibly like indigestion, reflux, will give Protonix. Requested D-dimer, reviewed, unremarkable, low probability of PE. Discussed with him obtaining treadmill mibi stress test in the morning. Continue aspirin. (2) Hypercalcemia: Mild hypercalcemia, 10.9, with mild hyponatremia, on HCTZ. Hold medicine. Recheck. Follow-up chemistry. Check magnesium. (3) Hyponatremia: Hold HCTZ. Recheck sodium level. Regular diet. Plan Anion gap metabolic acidosis, DM2: On metformin at home. On Jardiance Which can cause localized ketoacidosis. Noted anion gap metabolic acidosis, bicarb is down to 21. Hold metformin. Check lactic acid. Check UA, serum ketone. VBG Plan for the day: Given symptoms high concern for ACS. Appreciate negative troponins on admission. Patient continues to have on and off chest pressure. Check troponin levels. For now start on full dose Lovenox 1 mg/kg body weight Q12 hourly. Continue with aspirin, statin. Plan for Lexiscan stress test. Somehow the test was not done today. Have been confirmed for stress test in AM. N.p.o. after midnight. Start on cardiac diet for now. Goal blood pressure less than 140/90 mmHg. Holding off on hydrochlorothiazide given hyponatremia and hypercalcemia on admission. Decrease dose of lisinopril 20 mg oral daily. Check A1c, lipid panel. Check echocardiogram. Continues to have mild hyponatremia along with metabolic acidosis. Lactate negative on admission. Cannot rule out early euglycemic DKA. Ketones negative. Start on normal saline 75 cc/h. Attestations 2 Medical Necessity Statement*: Requires further hospitalization for management of unstable angina as patient is awaiting Lexiscan stress test, hyponatremia Diagnoses Chest pressure R07.89 Hypercalcemia E83.52 Hyponatremia E87.1
[2024-03-02 17:21] LABS: Troponin T (5th) Once 14 ng/L (0-15)
[2024-03-02] MEDS: atorvastatin 40 mg Tablet PO (17:38)
[2024-03-02 17:53] LABS: Glucose Point of Care 150 mg/dL (70-110)
[2024-03-02 21:16] LABS: Glucose Point of Care 231 mg/dL (70-110)
[2024-03-03 04:00] VITALS: BP 101/67; PULSE 81; RESP 20; TEMP 37; O2SAT 94
[2024-03-03] MEDS: enoxaparin 80 mg/0.8 mL Syringe SUBCUT (05:17)
[2024-03-03 06:00] VITALS: PULSE 76
[2024-03-03 06:27] LABS: Glucose Point of Care 170 mg/dL (70-110)
[2024-03-03 06:36] LABS: Basophils # 0.1 10^3/uL (0.0-0.1); Basophils % 0.7 %; Eosinophils # 0.2 10^3/uL (0.0-0.8); Lymphocytes # 2.4 10^3/uL (0.8-4.8); Lymphocytes % 32.2 %; Mean Corpuscular HGB Conc 35.1 g/dL (30-55); Mean Corpuscular Hemoglobin 32.1 pg (27-33); Mean Corpuscular Volume 91.6 fl (82-101); Mean Platelet Volume 9.8 fL (7.4-10.4); Monocytes # 0.6 10^3/uL (0.2-0.9); Monocytes % 8.7 %; Neutrophils # 4.04 10^3/uL (1.8-7.7); Neutrophils % 55.1 %; Nucleated Red Blood Cells % 0 %; Platelet Count 217 10^3/cmm (157-399); Red Blood Count 5.35 10^6/uL (3.85-5.65); Red Cell Distribution Width 11.3 % (12.1-15.1); White Blood Count 7.33 10^3/uL (3.29-11.43)
[2024-03-03] MEDS: regadenoson 0.4 Mg/5 ml Syringe IVP (06:55)
[2024-03-03 06:58] LABS: Alanine Aminotransferase 24 U/L (0-41); Albumin Level 4.4 g/dL (3.5-5.2); Alkaline Phosphatase 75 U/L (40-130); Anion Gap 19.9 (5-19); Aspartate Amino Transferase 25 U/L (0-40); Blood Urea Nitrogen 26 mg/dL (6-20); Calcium 9.6 mg/dL (8.5-10.5); Carbon Dioxide 22 mmol/L (22-29); Chloride 97 mmol/L (98-107); Creatinine Clr Calc Pharmacy 88.1807; Globulin 2.9 g/dL (1.3-4.6); Glomerular Filtration Rate 76.5 mL/min (90-130); Glucose 177 mg/dL (65-115); Osmolality Calculated 289 mOsm/kg (285-295); Potassium 3.9 mmol/L (3.5-5.1); Sodium 135 mmol/L (136-145); Total Bilirubin 0.7 mg/dL (0.15-1.2); Total Protein 7.3 g/dL (6.6-8.7)
[2024-03-03 07:51] VITALS: BP 134/64; PULSE 68
[2024-03-03 08:00] VITALS: BP 119/83; PULSE 75; RESP 16; TEMP 36.3; O2SAT 98
[2024-03-03] MEDS: aspirin 81 mg EC Tablet PO (08:04)
[2024-03-03] MEDS: lisinopril 20 mg Tablet PO (08:05)
[2024-03-03] MEDS: pantoprazole DR 40 mg Tablet PO (08:05)
[2024-03-03 08:22] LABS: Folate Level > 20.0 ng/mL (4.5-32.2)
[2024-03-03 11:53] VITALS: BP 111/76; PULSE 87; RESP 16; TEMP 36.3; O2SAT 96
[2024-03-03 12:12] LABS: Glucose Point of Care 132 mg/dL (70-110)
--- NOTE | 2024-03-03 12:39 | PM.DCS ---
Discharge Providers Date of Admission: 03/01/24 11:52 Date of Discharge: March 03, 2024 Attending Provider at Admission: Elier Yang Attending Provider at Discharge: Stew Ordaz MD Consults: Cardiology: Dr. Galeana Primary Care Provider: Kenia Samayoa MD Diagnoses at Discharge Discharge Diagnosis (1) Chest pressure: Status: Acute (2) Hypercalcemia: Status: Acute (3) Hyponatremia: Status: Acute Reason for Visit Reason for Visit: Chest Pressure, night sweats, lightheaded, SOB Brief History: As per HPI: Pleasant 58-year-old gentleman with history of longstanding HTN since teenage years, DM2, HLD, started having some chest pressure around midnight night before last, initially figured it was maybe some indigestion type symptoms with reflux, was having it somewhat through the day, but also felt mildly lightheaded, overnight woke up with mild night sweats. Chest pressure has been radiating to the left shoulder, left arm and present with exertion and at rest. Received nitroglycerin, did develop a headache, still having mild pressure. Hospital Course Hospital Course Patient admitted to the hospital with concerns for unstable angina. He continued to have occasional chest pressure and heaviness during hospitalization. On admission he was found to have normal troponin cycle without EKG changes but he was found to have hypercalcemia with concerns for mild metabolic acidosis for which she required IV fluids and his home dose of hydrochlorothiazide were discontinued. Metabolic acidosis and hypercalcemia resolved with IV fluids. During hospitalization his antihypertensives were adjusted. Echocardiogram was done which showed normal EF without regional wall motion abnormality. 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 Cardiology was consulted who recommended medical management and further follow-up as an outpatient. Physical Exam Narrative: Accompanied by his Const: COMMON NORMALS: patient oriented x3 and alert GENERAL APPEARANCE: cooperative ORIENTATION/CONSCIOUSNESS: Yes awake HENMT: COMMON NORMALS: oropharynx normal Neck/C-Spine: COMMON NORMALS: no JVD Resp: COMMON NORMALS: normal respiratory effort and clear to auscultation bilaterally AUSCULTATION: clear to auscultation bilaterally Cardio: COMMON NORMALS: no JVD, regular rhythm, S1 normal heart sound present, S2 normal heart sound present and No murmurs present (Cardio) RHYTHM: regular rhythm HEART SOUNDS: S1 normal heart sound present and S2 normal heart sound present GI: COMMON NORMALS: Normal to inspection, nondistended, normoactive bowel sounds present, Soft to palpation and non-tender PALPATION: Yes Soft to palpation Extremity: COMMON NORMALS: no joint enlargement and no pedal edema Neuro: COMMON NORMALS: patient oriented x3 and moves all extremities SENSORIUM/ORIENTATION: Yes alert Skin: COMMON NORMALS: no rashes or lesions noted GENERAL SKIN EXAM: no rashes or lesions noted Discharge Data Studies Completed and Pending Completed Studies During Hospitalization Category Date Time Status Sestamibi Stress Test Request Routine Exams 03/02/24 13:04 Draft XR chest 1V portable [id number] Stat Exams 03/01/24 10:50 Completed NM brittni perf SPECT r/s* [id number] Routine Nuc Med 03/03/24 13:04 Completed CV. echo complete* [id number] Routine Ultrasound 03/02/24 12:22 Completed Pending at discharge Category Date Time Status Complete Blood Count w/Auto AM LABS Lab 03/04/24 04:00 Ordered Comprehensive Metabolic Panel AM LABS Lab 03/04/24 04:00 Ordered MAG [Magnesium] AM LABS Lab 03/04/24 04:00 Ordered MAG [Magnesium] AM LABS Lab 03/05/24 04:00 Ordered Radiology Impressions Chest X-Ray 03/01/24 10:50 IMPRESSION: No acute findings. Echocardiogram: CONCLUSIONS Normal left ventricular size and systolic function, EF 60%. No regional wall motion abnormalities. Grade I/IV diastolic dysfunction (abnormal relaxation filling pattern), normal to mildly elevated filling pressures. Thickened aortic valve. Normal cardiac chamber sizes. No intracardiac masses There is no pericardial effusion. No similar previous studies are available for comparison. Dr Sondra Steel MD FAC (Electronically Signed) Final Date: 03 March 2024 Lexiscan stress test: PERFUSION FINDINGS There is a small area of partially reversible perfusion defect seen in inferior wall. This is consistent with small area of prior infarct with minimal kvng- infarct ischemia in RCA territory FUNCTIONAL RESULTS (calculated via Gated SPECT) Stress Image LV EF (%): 75 Stress EDV (mL):75 TID: 0.98 Stress ESV (mL):19 FUNCTIONAL FINDINGS: There is normal left ventricular systolic function. IMPRESSIONS 1. 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 2. LV systolic function is normal Steven Dougherty MD (Electronically Signed) Final Date: 03 March 2024 08:37 Laboratory Results WBC 7.33 10^3/uL (3.29-11.43) 03/03/24 06:22 RBC 5.35 10^6/uL (3.85-5.65) 03/03/24 06:22 Hgb 17.20 g/dL (11.27-16.99) H 03/03/24 06:22 Hct 49.0 % (37-53) 03/03/24 06:22 MCV 91.6 fl (82-101) 03/03/24 06:22 MCH 32.1 pg (27-33) 03/03/24 06:22 MCHC 35.1 g/dL (30-55) 03/03/24 06:22 RDW 11.3 % (12.1-15.1) L 03/03/24 06:22 Plt Count 217 10^3/cmm (157-399) 03/03/24 06:22 MPV 9.8 fL (7.4-10.4) 03/03/24 06:22 Neut % (Auto) 55.1 % 03/03/24 06:22 Lymph % (Auto) 32.2 % 03/03/24 06:22 [place] % (Auto) 8.7 % 03/03/24 06:22 Eos % (Auto) 3.0 % 03/03/24 06:22 Baso % (Auto) 0.7 % 03/03/24 06:22 Neut # (Auto) 4.04 10^3/uL (1.8-7.7) 03/03/24 06:22 Lymph # (Auto) 2.4 10^3/uL (0.8-4.8) 03/03/24 06:22 [place] # (Auto) 0.6 10^3/uL (0.2-0.9) 03/03/24 06:22 Eos # (Auto) 0.2 10^3/uL (0.0-0.8) 03/03/24 06:22 Baso # (Auto) 0.1 10^3/uL (0.0-0.1) 03/03/24 06:22 Nucleated RBC % (auto) 0 % 03/03/24 06:22 Nucleated RBCs # 0.0 /100WBC 03/03/24 06:22 PT 12.90 SECONDS (12.1-14.9) 03/01/24 11:16 INR 0.94 (0.8-1.2) 03/01/24 11:16 D-Dimer 0.29 ug/mLFEU (0-0.59) 03/01/24 11:16 Specimen Type Venous 03/01/24 16:44 Sample Site Not specified 03/01/24 16:44 Donald Test N/a 03/01/24 16:44 VBG pH 7.37 (7.32-7.42) 03/01/24 16:44 VBG pCO2 45.7 mmHg (41-51) 03/01/24 16:44 VBG pO2 20.5 mmHg (25-40) L 03/01/24 16:44 VBG HCO3 26.2 mmol/L (24-28) 03/01/24 16:44 VBG Base Excess 0.2 mmol/L (-3.0-3.0) 03/01/24 16:44 VBG Hematocrit 55.8 % (42-52) H 03/01/24 16:44 O2 Delivery Device Not Reportable 03/01/24 16:44 Security Solutions Engineer ID Rachana 03/01/24 16:44 Sodium 135 mmol/L (136-145) L 03/03/24 06:22 Potassium 3.9 mmol/L (3.5-5.1) 03/03/24 06:22 Chloride 97 mmol/L (98-107) L 03/03/24 06:22 Carbon Dioxide 22 mmol/L (22-29) 03/03/24 06:22 Anion Gap 19.9 (5-19) H 03/03/24 06:22 BUN 26 mg/dL (6-20) H 03/03/24 06:22 Creatinine 1.0 mg/dL (0.7-1.2) 03/03/24 06:22 GFR Calculation 76.5 mL/min (90-130) L 03/03/24 06:22 Glucose 177 mg/dL (65-115) H 03/03/24 06:22 POC Glucose 132 mg/dL (70-110) H 03/03/24 11:42 Estimat Average Glucose 166 03/02/24 05:40 Hemoglobin A1c 7.4 % (4.0-6.0) H 03/02/24 05:40 Calculated Osmolality 289 mOsm/kg (285-295) 03/03/24 06:22 Lactate 1.8 mmol/L (0.5-2.2) 03/01/24 16:44 Calcium 9.6 mg/dL (8.5-10.5) 03/03/24 06:22 Magnesium 2.0 mg/dL (1.7-2.3) 03/03/24 06:22 Iron 100 ug/dL (59-158) 03/02/24 05:40 TIBC 277 mcg/dl 03/02/24 05:40 % Saturation 36.1 % (20-50) 03/02/24 05:40 Unsat Iron Binding 177 ug/dL (112-347) 03/02/24 05:40 Total Bilirubin 0.7 mg/dL (0.15-1.2) 03/03/24 06:22 AST 25 U/L (0-40) 03/03/24 06:22 ALT 24 U/L (0-41) 03/03/24 06:22 Alkaline Phosphatase 75 U/L (40-130) 03/03/24 06:22 Creatine Kinase 75 U/L (39-308) 03/01/24 11:16 Troponin T 5th Gen ng/L 14 ng/L (0-15) 03/02/24 16:42 Troponin T Baseline 10 ng/L (0-15) 03/01/24 11:16 Troponin T 120 Minute 9.04 ng/L (0-15) 03/01/24 13:15 Delta Troponin T -0.96 ABS# (0-10) L 03/01/24 13:15 Troponin T Hi Sens 6Hr 10.04 ng/L (0-15) 03/01/24 16:44 Troponin T Hi Sens 6Hr Delta 0.04 ng/L (0-12) 03/01/24 16:44 Total Protein 7.3 g/dL (6.6-8.7) 03/03/24 06:22 Albumin 4.4 g/dL (3.5-5.2) 03/03/24 06:22 Globulin 2.9 g/dL (1.3-4.6) 03/03/24 06:22 Triglycerides 301 mg/dL (0-150) H 03/02/24 05:40 Cholesterol 130 mg/dL (0-200) 03/02/24 05:40 LDL Cholesterol, Calc 32 mg/dL (50-129) L 03/02/24 05:40 Total VLDL Cholesterol 60 mg/dL (0-30) H 03/02/24 05:40 HDL Cholesterol 38 mg/dL (60-100) L 03/02/24 05:40 Cholesterol/HDL Ratio 3.42 mg/dL (1.0-5.00) 03/02/24 05:40 Lipase 34 U/L (13-60) 03/01/24 11:16 Vitamin B12 888 pg/mL (232-1245) 03/02/24 05:40 Folate > 20.0 ng/mL (4.5-32.2) 03/03/24 06:22 TSH 1.79 uIU/mL (0.27-4.20) 03/02/24 05:40 Urine Color Yellow (Yellow) 03/01/24 16:33 Urine Appearance Clear (CLEAR) 03/01/24 16:33 Urine pH 5.0 (5-7) 03/01/24 16:33 Ur Specific [place] 1.018 (1.005-1.030) 03/01/24 16:33 Urine Protein Negative (Negative) 03/01/24 16:33 Urine Glucose (UA) 3+ (Normal) H 03/01/24 16:33 Urine Ketones 2+ (Negative) H 03/01/24 16:33 Urine Blood Negative (Negative) 03/01/24 16:33 Urine Nitrate Negative (Negative) 03/01/24 16:33 Urine Bilirubin Negative (Negative) 03/01/24 16:33 Urine Urobilinogen 0.2 mg/dL (Negative) 03/01/24 16:33 Ur Leukocyte Esterase Negative (Negative) 03/01/24 16:33 Amorphous Sediment Not Reportable 03/01/24 16:33 Serum Ketones Negative (Negative) 03/01/24 11:16 Coronavirus (PCR) Negative (Negative) 03/01/24 13:15 Influenza A (PCR) Negative (Negative) 03/01/24 13:15 Influenza Type B (PCR) Negative (Negative) 03/01/24 13:15 RSV (PCR) Negative (Negative) 03/01/24 13:15 Vitals Last Vital Signs Temp 97.3 F L 03/03/24 11:53 Pulse 87 03/03/24 11:53 Resp 16 03/03/24 11:53 BP 111/76 03/03/24 11:53 Pulse Ox 96 03/03/24 11:53 O2 Del Method Room Air 03/03/24 11:53 Discharge Plan Discharge Patient Disposition: Home Condition: Stable Prescriptions: New aspirin 81 mg Tablet,Delayed Release (Dr/Ec) 81 mg PO DAILY Qty: 30 0RF atorvastatin 40 mg tablet 40 mg PO DAILY Qty: 30 0RF Continued metformin 1,000 mg tablet 1,000 mg PO BID atorvastatin 40 mg Tablet 40 mg PO QPM Jardiance 25 mg Tablet 25 mg PO DAILY Changed lisinopril 40 mg tablet 20 mg PO DAILY Qty: 30 0RF Discontinued hydrochlorothiazide 25 mg Tablet 25 mg PO DAILY Discharge Orders: Discharge Order (Routine); Ordered 03/03/24 Ordered By: Stew Ordaz Referrals: Kenia Samayoa MD [Primary Care Provider] - 7-10 days Liana Arevalo NP [Nurse Practitioner] - 2 weeks Discharge Diet: Cardiac and Diabetic Discharge Activity: Resume usual activity and Increase activity as tolerated Patient Instructions: Opioid Safety Activity Restrictions/Additional Instructions: Take aspirin and statin going forward once daily. Next do not take hydrochlorothiazide for now. Check your blood pressure daily at home and a blood pressure diary and follow-up with a primary care provider within next 10 days for further adjustment of antihypertensive. Dose of lisinopril has been decreased to 20 mg oral daily. Discharge Attestations Time Spent in Discharge Care*: greater than 30 min Specific Discharge Activities: educating patient, discussing with pcp/other providers, discussing with vocational case manager/social workers/dc planners, documenting/other paperwork and evaluating patient/reviewing data Status at Discharge: Cognitive status at discharge: cognitively intact, Behavioral status at discharge: cooperative, Functional status at discharge: independent ambulation, Overall status at discharge: patient is back to baseline Quality Metrics Clinical Quality Measures [ No reported AMI, CVA or VTE this stay] Coding Level of Care Code 46425 Total time (in minutes) for Discharge: 60 Diagnoses Chest pressure R07.89 Hypercalcemia E83.52 Hyponatremia E87.1
--- NOTE | 2024-03-03 13:04 | NMCV_ITS ---
NM brittni perf SPECT r/s* [id number] Pipo Finnegan Age: 58 Gender: M : 1965 Exam Date: 03/03/2024 13:04 Ordering Phys: Stew Ordaz MD Technologist: ELIJAH Weeks Exam Location: [facility] Indications: cp STRESS TEST [facility] IMAGE PROTOCOL Rest/Stress 1 Lexiscan Day Radiopharmaceutical Dose (mCi) Administration Site Administered by Rest: Tc-99m 10.7 IV Florencia Degroot, FLIGHT TEST DATA ACQUISITION TECHNICIAN Sestamibi Stress:Tc-99m 33 IV Florencia [place]hel[place], FLIGHT TEST DATA ACQUISITION TECHNICIAN Sestamibi Rest: 03-Mar-2024 60 Discovery 630 Stress: 03-Mar-2024 30 Discovery 630 0.4mg Lexiscan. Images obtained in supine and prone position. SPECT RESULTS Technical Quality: Good Raw Data Analysis: Normal Image Corrections: No attenuation or motion correction applied Summed Stress Score: 2 Summed Rest Score: 3 Summed Difference Score: 2 PERFUSION FINDINGS There is a small area of partially reversible perfusion defect seen in inferior wall. This is consistent with small area of prior infarct with minimal kvng- infarct ischemia in RCA territory FUNCTIONAL RESULTS (calculated via Gated SPECT) Stress Image LV EF (%): 75 Stress EDV (mL):75 TID: 0.98 Stress ESV (mL):19 FUNCTIONAL FINDINGS: There is normal left ventricular systolic function. IMPRESSIONS 1. 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 2. LV systolic function is normal Steven Dougherty MD (Electronically Signed) Final Date: 03 March 2024 08:37 S
[2024-03-03 13:32] VITALS: BP 111/76; PULSE 87; RESP 16; TEMP 36.3; O2SAT 96
--- NOTE | 2024-03-03 13:34 | PC.NURSE ---
Discharge instructions provided to pt and his . No questions or concerns voiced at this time. To private vehicle with all belongings via wheelchair.
--- NOTE | 2024-03-03 21:00 | P.CONIM_ITS ---
<Statement entered by Farideh Galeana MD - 03/04/24 09:18> Patient was evaluated and cared for in conjunction with an advanced practice practitioner. I personally examined the patient and reviewed the chart and all pertinent data including imaging, telemetry, and laboratory results. I discussed the patient in detail with the advanced practice practitioner. Please see their note for complete H&P testing result and agreed upon plan of care for the patient. 58-year-old male past medical history significant for strong family history of coronary artery history of remote tobacco use otherwise pretty active in his lifestyle he walk on the treadmill on daily basis and over the weekend he jogs for at least 2 miles without any problem. He was admitted with nonspecific chest pressure symptoms rule out for acute coronary syndrome. Stress test was negative for ischemia echocardiogram showed no wall motion abnormality with normal ejection fraction. We have been asked to assist in his care. GENERAL: Patient is alert, awake and oriented x3. HEART: Regular S1 and S2. No murmur, rub or gallop. LUNGS: Clear to auscultate bilaterally. CENTRAL NERVOUS SYSTEM: Grossly nonfocal. EXTREMITIES: Lower extremities with out edema bilaterally. Assessment and plan Chest pain most likely atypical rule out for acute coronary syndrome stress is negative echocardiogram showed normal ejection fraction no wall motion abnormality at this point we will release patient home however advised in case of worsening of shortness of breath chest pain upon exertion or at rest he can call us back at that time given his history high risk status for coronary artery disease may will ask for coronary CT calcium or CTA angiogram. Providers/Reason For Consult 2 Consulting Physician/Specialty*: Dr. Galeana Reason for Consult*: Chest pain Attending Physician: Stew Ordaz MD Primary Care Provider: Kenia Samayoa MD History of Present Illness History of Present Illness Pleasant 58-year-old gentleman with history of longstanding HTN since teenage years, DM2, HLD, started having some chest pressure at night. Initially figured it was maybe some indigestion type symptoms with reflux, was having it somewhat through the day, but also felt mildly lightheaded, overnight woke up with mild night sweats. He states that he has chest pressure. Stated he had some arm pain as well at the left elbow. Reports significant family history of CAD. 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 He states that he can run up hills as well as was running the day of the chest discomfort and this did not worsen. The pain remained for several days. Troponin was negative. EKG showed no evidence of acute ischemia. Echo showed normal EF w/o wall motion abnormalities. Stress test showed small area of prior infarct with minimal kvng-infarct ischemia seen in the RCA territory. Review of Systems 2 Narrative: Denies chest pain at this time. Reports history of reflux. Denies shortness of breath. Denies nausea/vomiting Denies Strokelike symptoms Medications/Allergies Home Medications Medication Instructions Recorded Confirmed Last Taken Type metformin 1,000 mg tablet 1,000 mg PO BID 03/02/21 03/01/24 Unknown History atorvastatin 40 mg tablet 40 mg PO QPM 03/01/24 03/01/24 Unknown History empagliflozin 25 mg tablet 25 mg PO DAILY 03/01/24 03/01/24 Unknown History (Jardiance) aspirin 81 mg tablet,delayed 81 mg PO DAILY #30 tabs 03/03/24 Unknown Rx release atorvastatin 40 mg tablet 40 mg PO DAILY #30 tabs 03/03/24 Unknown Rx isosorbide mononitrate 30 mg 30 mg PO DAILY #30 tabs 03/03/24 Unknown Rx tablet,extended release 24 hr lisinopril 40 mg tablet 20 mg (1/2 x 40 mg) PO DAILY #30 03/03/24 03/01/24 Unknown Rx tabs metoprolol succinate 25 mg capsule 12.5 mg (1/2 x 25 mg) PO DAILY #30 03/03/24 Unknown Rx sprinkle, ext. release 24 hr ea nitroglycerin 0.4 mg sublingual 0.4 mg sublingual Q5M PRN chest 03/03/24 Unknown Rx tablet pain #20 tabs pantoprazole 40 mg tablet,delayed 40 mg PO DAILY #30 tabs 03/03/24 Unknown Rx release (Protonix) Allergies Allergy/AdvReac Type Severity Reaction Status Date / Time No Known Allergies Allergy Verified 03/02/21 11:02 PFSH Acute 2 PFSH: Medical History (Updated 03/03/24 @ 21:08 by Liana Arevalo NP) HLD (hyperlipidemia) HTN (hypertension) DM type 2 (diabetes mellitus, type 2) Family History Father Heart disease Social History Smoking and tobacco/nicotine status: former use of tobacco/nicotine Alcohol intake: never Substance/Drug Use: never Caregiver/support person: Yes Lives independently: Yes Vitals/I&O/Wt Last Vital Signs Temp 97.3 F L 03/03/24 13:32 Pulse 87 03/03/24 13:32 Resp 16 03/03/24 13:32 BP 111/76 03/03/24 13:32 Pulse Ox 96 03/03/24 13:32 O2 Del Method Room Air 03/03/24 11:53 03/03/24 03/03/24 03/03/24 06:59 14:59 22:59 Intake Total 480 / 2068.75 120 / 120 Balance 480 / 2068.75 120 / 120 Weight last 48 hrs Weight 183 lb Weight 183 lb Physical Exam 2 Narrative: No acute distress Alert and orientedx4 HR regular rate and rhythm, s1 s2 normal w/o murmur Lung sounds clear throughout no edema bilateral lower extremities Data 03/03/24 06:22 03/03/24 06:22 A&P Assessment and plan (1) Chest pain: (2) Chest pressure: (3) DM type 2 (diabetes mellitus, type 2): (4) HTN (hypertension): Plan At this time, patient is chest pain free. Troponins were negative. Symptoms are atypical for acute coronary ischemia. He has had chest pressure for the past three days, but no severe pain even despite running one mile with some hills. He is active daily without chest pain or pressure. Stress test mildly abnormal. At this time, we recommend intiate medical management with long acting nitro isosorbide, betablocker, and PPI for reflux. We will see him in the clinic in about a week for further evaluation. If chest pain continues, will need angiogram. He does understand if he develops severe chest pain to go to take nitro as prescribed, and go to the ER. Thank you for allowing us to take care of this very pelasant gentleman. Coding Level of Care Code Acute Code for Chg Fwd Diagnoses Chest pain R07.9 Chest pressure R07.89 DM type 2 (diabetes mellitus, type 2) E11.9 HTN (hypertension) I10
== END 2024-03-03 14:27 | disposition home or self-care (01) ==
LOC: ER 11:55 → MEDSURG 13:38
PROVIDERS: Admitting Provider Internal Medicine; Emergency Provider Emergency Medicine; PCP Family Medicine; Visit Provider Student in an Organized Health Care Education/Training Program
DX: R07.89 Other chest pain (principal); E83.52 Hypercalcemia; E87.1 Hypo-osmolality and hyponatremia; I10 Essential (primary) hypertension; E78.5 Hyperlipidemia, unspecified; E11.9 Type 2 diabetes mellitus without complications; Z82.49 Family history of ischemic heart disease and other diseases of the circulatory system; Z87.891 Personal history of nicotine dependence; Z79.84 Long term (current) use of oral hypoglycemic drugs
CPT/HCPCS: 0241U; 36415; 36416; 71045; 78452; 80053; 80061; 81003; 82009; 82550; 82607; 82746; 82803; 82962; 83036; 83540; 83550; 83605; 83690; 83735; 84443; 84484; 85025; 85378; 85610; 93005; 93017; 93306; 96372; 96375; 99285; A9500; G0378; J1650; J1815; J2785; J7030

== ENCOUNTER → 2024-03-11 08:25 | Outpatient (BNVA) | payer OTHER, SELFPAY | PROVIDERS: PCP Family Medicine; Visit Provider Nurse Practitioner Family | DX: I10 Essential (primary) hypertension (principal); E78.5 Hyperlipidemia, unspecified; R07.9 Chest pain, unspecified; E11.9 Type 2 diabetes mellitus without complications; Z79.84 Long term (current) use of oral hypoglycemic drugs; Z87.891 Personal history of nicotine dependence | CPT/HCPCS: 99214 ==

== ENCOUNTER 2024-05-15 09:17 | Outpatient (CLI) | payer OTHER, SELFPAY ==
--- NOTE | 2024-05-15 09:22 | MR_ITS ---
WS: [id number] MRI CERVICAL SPINE NONCONTRAST TECHNIQUE: Sagittal T1, T2 and STIR imaging. Axial T2, gradient, and fiesta imaging. CLINICAL INFORMATION: CERVIVCAL RADICULOPATHY COMPARISON: None. FINDINGS: Mild spondylitic changes. Straightening of the normal cervical lordosis. Disc osteophyte complexes worse at C5-C6 and C6-C7. C2-C3: Mild facet arthropathy. Mild LEFT bony foraminal narrowing. C3-C4: Disc osteophyte complex with moderate facet arthropathy. Mild LEFT bony foraminal narrowing. Mild central canal stenosis. C4-C5: Disc osteophyte complex with a small central protrusion. Mild central canal stenosis. Moderate facet arthropathy. Moderate bilateral bony foraminal narrowing. C5-C6: Disc osteophyte complex with a LEFT paracentral protrusion. Mild to moderate central canal stenosis with slight indentation of the cervical cord. Moderate to severe LEFT and moderate RIGHT bony foraminal narrowing. Moderate facet arthropathy. Uncovertebral joint hypertrophy. C6-C7: Disc osteophyte complex with shallow central protrusion. Slight indentation of the cervical cord. Moderate bilateral bony foraminal narrowing LEFT greater than RIGHT. Mild facet arthropathy. C7-T1: Mild LEFT and no significant RIGHT foraminal narrowing. Spinal canal is patent. Visualized brain stem structures: Normal. Prevertebral soft tissues: Normal. MR/MR cervical spin wo con* [id number] IMPRESSION: 1. Straightening of the normal cervical lordosis with moderate spondylitic tory nges. 2. Mild central canal stenosis due to disc osteophyte protrusions C3-C4 and C4 -C5. Mild to moderate central canal stenosis C5-C6 and C6-C7. 3. Moderate to severe LEFT C5-C6 bony foraminal narrowing. 4. Otherwise multilevel moderate bony foraminal narrowing at bilateral C4-5, R IGHT C5-C6, bilateral C6-7.
== END 2024-05-15 09:18 | disposition home or self-care (01) ==
PROVIDERS: Family Provider Chiropractor; PCP Family Medicine; Visit Provider Family Medicine
DX: M54.12 Radiculopathy, cervical region (principal); R93.7 Abnormal findings on diagnostic imaging of other parts of musculoskeletal system; M47.892 Other spondylosis, cervical region; M48.02 Spinal stenosis, cervical region; M25.78 Osteophyte, vertebrae; M50.21 Other cervical disc displacement, high cervical region; M50.221 Other cervical disc displacement at C4-C5 level; M50.222 Other cervical disc displacement at C5-C6 level; M48.03 Spinal stenosis, cervicothoracic region
CPT/HCPCS: 72141